=== PATIENT | male | born 1975 | race African-American/Black ===

== ENCOUNTER 2022-06-05 13:54 | Emergency (ER) | payer MEDICAID, OTHER ==
[~2022-06-05] VITALS: Ht 167.6 cm; Wt 93.0 kg
[2022-06-05] MEDS ORDERED: SODIUM CHLORIDE 0.9% 500 ML IV ONE (16:15)
[2022-06-05] MEDS ORDERED: DEXAMETHASONE 4MG/ML 1ML VIAL IV ONE (16:15)
[2022-06-05] MEDS ORDERED: CLINDAMYCIN HCL 150MG CAPSULE PO SCH (16:15)
[2022-06-05] MEDS ORDERED: KETOROLAC 15MG/ML VIAL IV ONE (16:15)
[2022-06-05 16:58] LABS: CLARITY URINE CLEAR (CLEAR); COLOR URINE DARK YELLOW (YELLOW); KETONES URINE TRACE (NEGATIVE); LEUKOCYTE ESTERASE URINE TRACE (NEGATIVE); NITRITE URINE NEGATIVE (NEGATIVE); OCCULT BLOOD URINE NEGATIVE (NEGATIVE); PH URINE 5.5 (4.5-8.0); PROTEIN URINE 2+ (NEGATIVE); SPECIFIC GRAVITY URINE 1.028 (1.005-1.030)
[2022-06-05] MEDS ORDERED: HYDR-4001 MT (17:27)
[2022-06-05 17:33] VITALS: BP 122/77
[2022-06-05] MEDS ORDERED: CLIN-194 MT ×3 (17:52→17:54)
[2022-06-05] MEDS ORDERED: IBUP-2029 MT ×3 (17:52→17:54)
[2022-06-05] MEDS ORDERED: POLY17PO3 MT ×3 (17:52→17:54)
== END 2022-06-05 18:05 | disposition home or self-care (01) ==
LOC: ER 13:54
DX: H66.92 Otitis media, unspecified, left ear (principal); J02.9 Acute pharyngitis, unspecified; K59.00 Constipation, unspecified; F32.9 Major depressive disorder, single episode, unspecified; F20.9 Schizophrenia, unspecified; B20 Human immunodeficiency virus [HIV] disease; Z20.822 Contact with and (suspected) exposure to COVID-19
CPT/HCPCS: 81003; 87426; 96361; 96374; 96375; 99284; C9803; J1100; J1885; J7030; Z7610

== ENCOUNTER 2022-06-07 15:49 | Inpatient (IN) | payer MEDICAID, OTHER ==
[~2022-06-07] VITALS: Ht 167.6 cm; Wt 94.3 kg
[~2022-06-07 15:49] MED LIST: CLIN-194 MT; IBUP-2029 MT; POLY17PO3 MT
[2022-06-07] MEDS ORDERED: IBUPROFEN 600MG TABLET PO STA (17:09)
[2022-06-07] MEDS ORDERED: ONDANSETRON HCL 4MG/2ML INJ IV STA (17:09)
[2022-06-07] MEDS ORDERED: CEFTRIAXONE 1 G PREMIX 50 ML IV ONE (17:15)
[2022-06-07] MEDS ORDERED: SODIUM CHLORIDE 0.9% 1000ML BAG (SEPSIS BOLUS) IV ONE (17:15)
[2022-06-07 18:29] LABS: HEMATOCRIT. 39.5 % (42.0-52.0); HEMOGLOBIN. 12.6 g/dL (14.0-18.0); MEAN CORPUSCULAR HEMOGLOBIN 25.8 pg (28.0-32.0); MEAN CORPUSCULAR VOLUME 80.8 fL (80.0-94.0); MEAN PLATELET VOLUME 9.2 fl (7.4-10.4); PLATELET 218 x1000/uL (130-400); RED BLOOD CELL COUNT 4.89 mill/uL (4.7-6.1); RED CELL DISTRIBUTION WIDTH 13.2 % (11.6-14.6)
[2022-06-07 18:34] LABS: CHLORIDE 103 mEq/L (98-107)
[2022-06-07 18:52] LABS: CLARITY URINE CLEAR (CLEAR); COLOR URINE YELLOW (YELLOW); KETONES URINE NEGATIVE (NEGATIVE); LEUKOCYTE ESTERASE URINE NEGATIVE (NEGATIVE); NITRITE URINE NEGATIVE (NEGATIVE); OCCULT BLOOD URINE NEGATIVE (NEGATIVE); PH URINE 5.5 (4.5-8.0); PROTEIN URINE 1+ (NEGATIVE); SPECIFIC GRAVITY URINE 1.021 (1.005-1.030)
[2022-06-07 20:14] LABS: PLATELET ESTIMATE NORMAL
[2022-06-07] MEDS ORDERED: TRAMADOL 50MG TABLET PO ONE (22:45)
[2022-06-07] MEDS ORDERED: PENICILLIN G BENZATHINE 1,200,000 UNITS/2ML SYR IM NR (23:15)
[2022-06-08] MEDS ORDERED: DEXAMETHASONE 10 MG/ML VIAL IV ONE
[2022-06-08] MEDS ORDERED: MAGNESIUM/ALUMINUM HYDROXIDE/SIMETHICONE 30ML UDC PO PRN (09:30)
[2022-06-08] MEDS ORDERED: KETOROLAC 15MG/ML VIAL IV PRN (09:30)
[2022-06-08] MEDS ORDERED: ONDANSETRON HCL 4MG/2ML INJ IV PRN (09:30)
[2022-06-08] MEDS ORDERED: ENOXAPARIN 40MG/0.4ML SYR SUBCUT SCH (09:30)
[2022-06-08] MEDS ORDERED: GUAIFENESIN 200MG/10ML SUGAR FREE UDC PO PRN (09:30)
[2022-06-08] MEDS ORDERED: DOCUSATE SODIUM 100MG CAPSULE PO PRN (09:30)
[2022-06-08] MEDS ORDERED: CLONIDINE 0.1MG TABLET PO PRN (09:30)
[2022-06-08] MEDS ORDERED: LORAZEPAM 2MG/ML CPJ IV PRN (09:30)
[2022-06-08] MEDS ORDERED: NITROGLYCERIN 0.4MG TABLET SL SL PRN (09:30)
[2022-06-08] MEDS ORDERED: PIPERACILLIN/TAZ 3.375G PREMIX 50 ML IV SCH (09:30)
[2022-06-08] MEDS ORDERED: ACETAMINOPHEN 325MG TABLET PO PRN ×2 (09:30)
[2022-06-08] MEDS ORDERED: IPRATROPIUM/ALBUTEROL 0.5-3(2.5)MG/3ML NEB NEB PRN (09:30)
[2022-06-08] MEDS: PANTOPRAZOLE SODIUM 40 MG/VIAL IV SCH (11:31)
[2022-06-08] MEDS: ENOXAPARIN 30MG/0.3ML SYR SUBCUT SCH ×2 (11:32→21:38)
[2022-06-08 12:00] VITALS: BP 133/62
[2022-06-08] MEDS ORDERED: VANCOMYCIN 2,000 MG in DEXT 5% WATER 500 ML IV NR (12:00)
[2022-06-08 13:53] LABS: *AMPHETAMINES SCREEN URINE NEGATIVE (NEGATIVE); *BARBITURATES SCREEN URINE NEGATIVE (NEGATIVE); *BENZODIAZEPINES SCREEN URINE NEGATIVE (NEGATIVE); *COCAINE SCREEN URINE NEGATIVE (NEGATIVE); CANNABINOID URINE SCREEN PRESUMTIVE POSITIVE (NEGATIVE); METHADONE URINE SCREEN NEGATIVE (NEGATIVE); OPIATES URINE SCREEN NEGATIVE (NEGATIVE); PHENCYCLIDINE URINE SCREEN NEGATIVE (NEGATIVE)
[2022-06-08] MEDS: DEXT 5%/LACTATED RINGERS 1,000 ML IV SCH ×2 (14:00→22:50)
[2022-06-08] MEDS: PIPERACILLIN/TAZOBACTAM 3.375G in DEXT 5% WATER 50ML IV SCH ×2 (14:31→21:38)
[2022-06-08 16:00] VITALS: BP 132/88
[2022-06-08 20:00] VITALS: BP 115/72
[2022-06-08] MEDS ORDERED: ZOLPIDEM TARTRATE 5MG TABLET PO PRN (21:00)
[2022-06-08] MEDS: VANCOMYCIN 1.25GM PMX (XELLIA) 250 ML IV SCH (21:38)
[2022-06-08 22:56] LABS: CREATINE KINASE 223 IU/L (39-308); CREATINE KINASE MB FRACTION 1.4 ng/mL (0.5-3.6)
[2022-06-08 22:57] LABS: MONOTEST NEGATIVE (NEGATIVE)
[2022-06-08 23:02] LABS: T4 FREE 1.3 ng/dL (0.76-1.46)
[2022-06-09] VITALS: BP 122/91
[2022-06-09 00:03] LABS: FOLIC ACID (FOLATE) SERUM 11.3 ng/mL (>5.38)
[2022-06-09 04:00] VITALS: BP 120/87
[2022-06-09] MEDS: PIPERACILLIN/TAZOBACTAM 3.375G in DEXT 5% WATER 50ML IV SCH ×2 (05:07→13:14)
[2022-06-09 07:03] LABS: CHLORIDE 99 mEq/L (98-107)
[2022-06-09 07:10] LABS: PHOSPHORUS 2.9 mg/dL (2.5-4.9)
[2022-06-09 07:11] LABS: BASOPHILS % 0.9 % (0.0-2.0); EOSINOPHILS % 2.2 % (0.0-5.0); HEMOGLOBIN. 11.9 g/dL (14.0-18.0); LYMPHOCYTES % 36.1 % (20.0-50.0); MEAN CORPUSCULAR HEMOGLOBIN 25.4 pg (28.0-32.0); MEAN CORPUSCULAR VOLUME 78.9 fL (80.0-94.0); MEAN PLATELET VOLUME 8.9 fl (7.4-10.4); MONOCYTES % 10.6 % (2.0-8.0); NEUTROPHILS % 50.2 % (40.0-76.0); PLATELET 249 x1000/uL (130-400); RED BLOOD CELL COUNT 4.69 mill/uL (4.7-6.1); RED CELL DISTRIBUTION WIDTH 13.5 % (11.6-14.6)
[2022-06-09] MEDS ORDERED: *PATIENT'S OWN MEDICATION STORAGE XX SCH (07:30)
[2022-06-09 08:00] VITALS: BP 128/88
[2022-06-09] MEDS: VANCOMYCIN 1.25GM PMX (XELLIA) 250 ML IV SCH ×2 (08:53→21:49)
[2022-06-09] MEDS: ENOXAPARIN 30MG/0.3ML SYR SUBCUT SCH ×2 (08:54→21:48)
[2022-06-09] MEDS: PANTOPRAZOLE SODIUM 40 MG/VIAL IV SCH (08:54)
[2022-06-09] MEDS ORDERED: BICT1TAB PO (09:31)
[2022-06-09] MEDS: DEXT 5%/LACTATED RINGERS 1,000 ML IV SCH (11:26)
[2022-06-09] MEDS: BIKTARVY PO SCH (11:26)
[2022-06-09 11:48] VITALS: BP 131/93
[2022-06-09 16:00] VITALS: BP 126/82
[2022-06-09] MEDS: CEFTRIAXONE 2 G in DEXTROSE 5% WATER 50 ML IV SCH (18:34)
[2022-06-09 20:00] VITALS: BP 129/84
[2022-06-10] VITALS: BP 133/78
[2022-06-10 04:00] VITALS: BP 136/81
[2022-06-10 08:00] VITALS: BP 113/81
[2022-06-10] MEDS: DEXT 5%/LACTATED RINGERS 1,000 ML IV SCH ×2 (09:00→14:57)
[2022-06-10] MEDS: ENOXAPARIN 30MG/0.3ML SYR SUBCUT SCH ×2 (09:01→21:37)
[2022-06-10] MEDS: PANTOPRAZOLE SODIUM 40 MG/VIAL IV SCH (09:01)
[2022-06-10] MEDS: BIKTARVY PO SCH (09:01)
[2022-06-10] MEDS: VANCOMYCIN 1.25GM PMX (XELLIA) 250 ML IV SCH ×2 (09:01→17:20)
[2022-06-10 12:00] VITALS: BP 113/81
[2022-06-10 16:00] VITALS: BP 128/73
[2022-06-10] MEDS: CEFTRIAXONE 2 G in DEXTROSE 5% WATER 50 ML IV SCH (17:20)
[2022-06-10] MEDS: [UNRECOGNIZED DRUG - OTHER] PO SCH (17:21)
[2022-06-10 20:00] VITALS: BP 113/74
[2022-06-10 21:09] LABS: MEAN CORPUSCULAR HEMOGLOBIN 25.6 pg (28.0-32.0); MEAN CORPUSCULAR VOLUME 78.8 fL (80.0-94.0); MEAN PLATELET VOLUME 8.4 fl (7.4-10.4); PLATELET 314 x1000/uL (130-400); RED BLOOD CELL COUNT 4.69 mill/uL (4.7-6.1); RED CELL DISTRIBUTION WIDTH 12.7 % (11.6-14.6)
[2022-06-10 22:52] LABS: CHLORIDE 101 mEq/L (98-107)
[2022-06-11] VITALS: BP 130/88
[2022-06-11] MEDS: VANCOMYCIN 1.25GM PMX (XELLIA) 250 ML IV SCH ×3 (00:28→18:11)
[2022-06-11 04:00] VITALS: BP 99/75
[2022-06-11] MEDS: DEXT 5%/LACTATED RINGERS 1,000 ML IV SCH ×2 (04:10→18:11)
[2022-06-11 05:38] LABS: ATYPICAL LYMPHOCYTES 4; PLATELET ESTIMATE NORMAL
[2022-06-11 06:20] LABS: ABSOLUTE BASOPHILS 0.1 x10E3/uL (0.0-0.2); ABSOLUTE EOSINOPHILS 0.5 x10E3/uL (0.0-0.4); ABSOLUTE LYMPHOCYTES 3.9 x10E3/uL (0.7-3.1); ABSOLUTE MONOCYTES 1.2 x10E3/uL (0.1-0.9); ABSOLUTE NEUTROPHILS 5.8 x10E3/uL (1.4-7.0); BASOPHILS 1 % (Not Estab.); HEMATOCRIT 40.5 % (37.5-51.0); HEMATOLOGY COMMENT Note: (.); HEMOGLOBIN 12.5 g/dL (13.0-17.7); IMMATURE GRANULOCYTES 2 % (Not Estab.); IMMATURE GRANULOCYTES ABSOLUTE 0.2 x10E3/uL (0.0-0.1); LYMPHOCYTES 33 % (Not Estab.); MEAN CORPUSCULAR HEMOGLOBIN 25.1 pg (26.6-33.0); MEAN CORPUSCULAR HGB CONC. 30.9 g/dL (31.5-35.7); MEAN CORPUSCULAR VOLUME 81 fL (79-97); MONOCYTES 10 % (Not Estab.); NEUTROPHILS 50 % (Not Estab.); PLATELETS 297 x10E3/uL (150-450); RBC 4.99 x10E6/uL (4.14-5.80); RED CELL DISTRIBUTION WIDTH 12.6 % (11.6-15.4); WBC 11.5 x10E3/uL (3.4-10.8)
[2022-06-11 06:55] LABS: CHLORIDE 103 mEq/L (98-107)
[2022-06-11 08:00] VITALS: BP 133/89
[2022-06-11 09:10] LABS: % CD 3 POS. LYMPHOCYTES 82.8 % (57.5-86.2); % CD 4 POS. LYMPHOCYTES 11.5 % (30.8-58.5); % CD 8 POS. LYMPH 72.3 % (12.0-35.5); ABSOLUTE CD 3 3229 /uL (622-2402); ABSOLUTE CD 4 HELPER 449 /uL (359-1519); ABSOLUTE CD 8 SUPPRESSOR 2820 /uL (109-897); CD4/CD8 RATIO 0.16 (0.92-3.72)
[2022-06-11] MEDS: ENOXAPARIN 30MG/0.3ML SYR SUBCUT SCH ×2 (11:03→20:22)
[2022-06-11] MEDS: PANTOPRAZOLE SODIUM 40 MG/VIAL IV SCH (11:04)
[2022-06-11] MEDS: BIKTARVY PO SCH (11:04)
[2022-06-11] MEDS: [UNRECOGNIZED DRUG - OTHER] PO SCH ×2 (11:05→18:11)
[2022-06-11 12:00] VITALS: BP 123/75
[2022-06-11 16:00] VITALS: BP 115/89
[2022-06-11] MEDS: CEFTRIAXONE 2 G in DEXTROSE 5% WATER 50 ML IV SCH (18:11)
[2022-06-11 20:00] VITALS: BP 138/85
[2022-06-12] VITALS: BP 119/79
[2022-06-12] MEDS: VANCOMYCIN 1.25GM PMX (XELLIA) 250 ML IV SCH ×2 (00:11→09:38)
[2022-06-12 04:00] VITALS: BP 114/67
[2022-06-12] MEDS: DEXT 5%/LACTATED RINGERS 1,000 ML IV SCH ×2 (05:48→20:10)
[2022-06-12 06:30] LABS: BASOPHILS % 1.2 % (0.0-2.0); EOSINOPHILS % 3.8 % (0.0-5.0); HEMOGLOBIN. 12.3 g/dL (14.0-18.0); LYMPHOCYTES % 35.5 % (20.0-50.0); MEAN CORPUSCULAR HEMOGLOBIN 25.7 pg (28.0-32.0); MEAN CORPUSCULAR VOLUME 79.7 fL (80.0-94.0); MEAN PLATELET VOLUME 8.2 fl (7.4-10.4); MONOCYTES % 13.3 % (2.0-8.0); NEUTROPHILS % 46.2 % (40.0-76.0); PLATELET 356 x1000/uL (130-400); RED BLOOD CELL COUNT 4.77 mill/uL (4.7-6.1); RED CELL DISTRIBUTION WIDTH 12.8 % (11.6-14.6)
[2022-06-12 06:47] LABS: CHLORIDE 102 mEq/L (98-107)
[2022-06-12 08:00] VITALS: BP 121/78
[2022-06-12] MEDS: BIKTARVY PO SCH (09:37)
[2022-06-12] MEDS: [UNRECOGNIZED DRUG - OTHER] PO SCH ×2 (09:37→17:46)
[2022-06-12] MEDS: ENOXAPARIN 30MG/0.3ML SYR SUBCUT SCH ×2 (09:39→20:16)
[2022-06-12] MEDS: FAMOTIDINE 20MG TABLET PO SCH ×2 (09:39→20:16)
[2022-06-12 12:00] VITALS: BP 126/86
[2022-06-12 16:00] VITALS: BP 125/83
[2022-06-12] MEDS: CEFTRIAXONE 2 G in DEXTROSE 5% WATER 50 ML IV SCH (17:57)
[2022-06-12] MEDS ORDERED: VANCOMYCIN 1GM PMX (XELLIA) 200 ML IV SCH (18:00)
[2022-06-12 20:00] VITALS: BP 133/95
[2022-06-13] VITALS (7 sets, daily range): BP systolic 117–137; BP diastolic 68–91
[2022-06-13 06:27] LABS: CHLORIDE 103 mEq/L (98-107)
[2022-06-13 06:30] LABS: BASOPHILS % 1.2 % (0.0-2.0); EOSINOPHILS % 2.2 % (0.0-5.0); HEMATOCRIT. 37.9 % (42.0-52.0); HEMOGLOBIN. 12.3 g/dL (14.0-18.0); LYMPHOCYTES % 34.2 % (20.0-50.0); MEAN CORPUSCULAR HEMOGLOBIN 25.6 pg (28.0-32.0); MEAN CORPUSCULAR VOLUME 78.9 fL (80.0-94.0); MEAN PLATELET VOLUME 8.4 fl (7.4-10.4); MONOCYTES % 11.1 % (2.0-8.0); NEUTROPHILS % 51.3 % (40.0-76.0); PLATELET 361 x1000/uL (130-400); RED BLOOD CELL COUNT 4.81 mill/uL (4.7-6.1); RED CELL DISTRIBUTION WIDTH 12.9 % (11.6-14.6)
[2022-06-13] MEDS: BIKTARVY PO SCH (08:31)
[2022-06-13] MEDS: [UNRECOGNIZED DRUG - OTHER] PO SCH ×2 (08:32→17:53)
[2022-06-13] MEDS: FAMOTIDINE 20MG TABLET PO SCH ×2 (08:33→20:40)
[2022-06-13] MEDS: ENOXAPARIN 30MG/0.3ML SYR SUBCUT SCH ×2 (08:33→20:40)
[2022-06-13] MEDS: DEXT 5%/LACTATED RINGERS 1,000 ML IV SCH ×2 (08:34→23:31)
[2022-06-13] MEDS: CEFTRIAXONE 2 G in DEXTROSE 5% WATER 50 ML IV SCH (17:53)
[2022-06-14 04:00] VITALS: BP 122/83
[2022-06-14 06:45] LABS: CHLORIDE 103 mEq/L (98-107)
[2022-06-14 06:52] LABS: BASOPHILS % 0.6 % (0.0-2.0); EOSINOPHILS % 1.5 % (0.0-5.0); HEMATOCRIT. 40.1 % (42.0-52.0); HEMOGLOBIN. 13.1 g/dL (14.0-18.0); LYMPHOCYTES % 34.3 % (20.0-50.0); MEAN CORPUSCULAR HEMOGLOBIN 25.8 pg (28.0-32.0); MEAN CORPUSCULAR VOLUME 79.1 fL (80.0-94.0); MEAN PLATELET VOLUME 8.2 fl (7.4-10.4); MONOCYTES % 13.1 % (2.0-8.0); NEUTROPHILS % 50.5 % (40.0-76.0); PLATELET 344 x1000/uL (130-400); RED BLOOD CELL COUNT 5.07 mill/uL (4.7-6.1); RED CELL DISTRIBUTION WIDTH 13.2 % (11.6-14.6)
[2022-06-14] MEDS: [UNRECOGNIZED DRUG - OTHER] PO SCH (07:40)
[2022-06-14 08:00] VITALS: BP 127/76
[2022-06-14] MEDS: FAMOTIDINE 20MG TABLET PO SCH (09:00)
[2022-06-14] MEDS: BIKTARVY PO SCH (09:00)
[2022-06-14] MEDS: ENOXAPARIN 30MG/0.3ML SYR SUBCUT SCH (09:00)
[2022-06-14] MEDS ORDERED: VIT1TABL PO (09:18)
[2022-06-14] MEDS ORDERED: ZINC50TA69 MT (09:18)
[2022-06-14] MEDS ORDERED: AMOX1TAB16 MT (09:21)
[2022-06-14 10:24] VITALS: BP 127/76
[2022-06-14 12:00] VITALS: BP 124/70
[2022-06-14] MEDS: DEXT 5%/LACTATED RINGERS 1,000 ML IV SCH (12:10)
== END 2022-06-14 13:30 | disposition home or self-care (01) | DRG 720 ==
LOC: ER 15:49 → ENRESERV 06-08 07:32 → 8WST 06-08 08:45
PROVIDERS: ADMIT Internal Medicine; ATTEND Internal Medicine
DX: A41.9 Sepsis, unspecified organism (principal); D63.8 Anemia in other chronic diseases classified elsewhere; E87.1 Hypo-osmolality and hyponatremia; E88.09 Other disorders of plasma-protein metabolism, not elsewhere classified; B04 Monkeypox; F20.9 Schizophrenia, unspecified; J03.90 Acute tonsillitis, unspecified; H92.02 Otalgia, left ear; L80 Vitiligo; F31.9 Bipolar disorder, unspecified; Z20.822 Contact with and (suspected) exposure to COVID-19; Z79.899 Other long term (current) drug therapy; Z72.89 Other problems related to lifestyle
CPT/HCPCS: 36415; 70491; 71045; 80048; 80053; 80202; 80305; 81003; 82550; 82553; 82607; 82746; 83540; 83550; 83605; 83735; 84100; 84145; 84439; 84443; 84484; 85025; 85651; 86140; 86308; 86359; 86360; 86592; 87070; 87426; 87430; 87593; 93005; 93970; 99285; C1893; C9113; C9803; J0561; J0696; J1100; J1650; J2405; J2543; J3370; J7030; J7060; J7121